=== PATIENT | female | born 1985 | race Caucasian/White ===

== ENCOUNTER 2017-08-12 14:07 | Emergency (ER) | payer OTHER ==
[~2017-08-12] VITALS: Ht 170.2 cm; Wt 90.7 kg
[~2017-08-12 14:07] MED LIST: ADVIL200 MG PO; AMITRIPTYLINE H25 MG PO; ATIVAN1 MG PO; ATIVAN2 MG PO; AUGMENTIN 875-1 EACH PO; EFFEXOR XR75 MG PO; FLUCELVAX IM; GABAPENTIN600 MG PO; KEFLEX500 MG PO; NABUMETONE500 MG PO; NORCO 5-325 TA1 EACH PO; OXYCODON-ACETA1 EAC2 PO; TRAMADOL HCL50 MG PO; VENTOLIN HFA18 GM INH; ZITHROMAX250 MG PO
[2017-08-12] MEDS ORDERED: LORAZEPAM1 MG PO (14:19)
[2017-08-12] MEDS ORDERED: LEVAQUIN750 MG PO (15:28)
== END 2017-08-12 15:41 | disposition home or self-care (01) ==
LOC: ED 14:07
DX: J32.9 Chronic sinusitis, unspecified (principal); Z88.8 Allergy status to other drugs, medicaments and biological substances; Z79.899 Other long term (current) drug therapy
CPT/HCPCS: 71046; 94640; 99283

== ENCOUNTER 2017-12-15 19:24 | Emergency (ER) | payer MEDICAID ==
[~2017-12-15] VITALS: Ht 170.2 cm; Wt 86.2 kg
[~2017-12-15 19:24] MED LIST changes: +LEVAQUIN750 MG PO; +LORAZEPAM1 MG PO
[2017-12-15] MEDS ORDERED: AZO STANDARD95 MG PO (19:51)
[2017-12-15] MEDS ORDERED: PYRIDIUM200 MG PO ×2 (20:43→20:45)
[2017-12-15] MEDS ORDERED: CEPHALEXIN500 MG PO (20:44)
== END 2017-12-15 21:24 | disposition home or self-care (01) ==
LOC: ED 19:24
DX: N39.0 Urinary tract infection, site not specified (principal); F17.200 Nicotine dependence, unspecified, uncomplicated
CPT/HCPCS: 81001; 96372; 99283; J0696

== ENCOUNTER 2024-08-06 01:12 | Emergency (ER) | payer OTHER ==
[~2024-08-06] VITALS: Ht 170.2 cm; Wt 90.7 kg
[~2024-08-06 01:12] MED LIST changes: +AZO STANDARD95 MG PO; +CEPHALEXIN500 MG PO; +METOPROLOL SUCC25 MG PO; +PYRIDIUM200 MG PO
[2024-08-06] MEDS ORDERED: SODIUM CHLORIDE 0.9% 1,000 ML IV ONE (01:30)
[2024-08-06] MEDS ORDERED: MORPHINE SULFATE 4 MG/ML VIAL IV ONE (01:30)
[2024-08-06] MEDS ORDERED: ondansetron HCL 4 MG/2 ML VIAL IV ONE (01:30)
[2024-08-06 01:36] LABS: BILIRUBIN, URINE NEGATIVE (negative); BLOOD/HGB, URINE TRACE-I (Negative); KETONE, URINE NEGATIVE (Negative); LEUK ESTERASE, URINE NEGATIVE (negative); NITRITE, URINE NEGATIVE (negative)
[2024-08-06 02:12] LABS: BASOPHILS 0.2 % (0-2); EOSINOPHILS 0.2 % (0-6); HEMATOCRIT 38.6 % (35.0-50.0); HEMOGLOBIN 13.5 g/dL (12.0-18.0); LYMPHOCYTES 5.2 % (24-44); MCH 32.1 (27-36); MCV 91.7 fl (81-99); MONOCYTES 4.6 % (0-12); NEUTROPHILS 89.8 % (39-80); PLATELET COUNT 167 K/uL (140-440); RBC 4.21 M/ul (4.3-5.7); RDW 12.8 (10.5-15.0)
[2024-08-06 02:17] LABS: BACTERIA, URINE RARE /hpf (negative); CASTS, URINE NONE SEEN \\lpf; COLLECTION TYPE, URINE CLEAN CATCH; CRYSTALS, URINE NONE SEEN (0-1+); EPITHELIAL CELLS, URINE SQUAMOUS 1+ /lpf (0-1+); RED BLOOD CELLS, URINE 0-1 /hpf (0-5); REFLEX CULTURE, URINE No (No)
[2024-08-06 02:29] LABS: ALBUMIN 3.4 g/dL (3.4-5.0); ALKALINE PHOSPHATASE 97 U/L (46-116); ALT (SGPT) 43 U/L (14-59); ANION GAP 11.2 (7-21); AST (SGOT) 17 U/L (15-37); BILIRUBIN, TOTAL 0.9 mg/dL (0.2-1.0); BUN/CREATININE RATIO 9.18 (6.0-28.6); CALCIUM 8.6 mg/dL (8.5-10.1); CARBON DIOXIDE 29 mmol/L (21-32); CHLORIDE 103 mmol/L (98-107); CREATININE, SERUM 0.98 mg/dL (0.55-1.02); GLOMERULAR FILTRATION RATE,EST 75 mL/min (>60); POTASSIUM 3.2 mmol/L (3.5-5.1); PROTEIN, TOTAL 6.8 g/dL (6.4-8.2); UREA NITROGEN 9 mg/dL (7-18)
[2024-08-06] MEDS ORDERED: KETOROLAC TROMETHAMINE 15 MG/ML VIAL IV ONE (02:30)
[2024-08-06] MEDS ORDERED: HYDROmorphone HCL 1 MG/ML SYR IV PRN (02:30)
[2024-08-06] MEDS ORDERED: VENTOLIN HFA18 GM INH (02:45)
[2024-08-06] MEDS ORDERED: CEFDINIR 300 MG HOME.PACK PO ONE (02:45)
[2024-08-06] MEDS ORDERED: AZITHROMYCIN500 MG PO (02:45)
[2024-08-06] MEDS ORDERED: CEFDINIR300 MG PO (02:45)
[2024-08-06] MEDS ORDERED: PREDNISONE20 MG PO (02:45)
[2024-08-06] MEDS ORDERED: HYDROCODON-ACE1 EA10 PO (02:45)
[2024-08-06] MEDS ORDERED: AZITHROMYCIN 250 MG TAB PO ONE (03:00)
[2024-08-06] MEDS ORDERED: HYDROCODONE BIT/ACETAMINOPHEN 5/325 MG 1 TAB HOME.PACK PO ONE (03:00)
[2024-08-06] MEDS ORDERED: predniSONE 20 MG TAB PO ONE (03:00)
[2024-08-06 03:47] VITALS: BP 108/61
== END 2024-08-06 03:38 | disposition home or self-care (01) ==
LOC: ED 01:12
PROVIDERS: Family Medicine
DX: J18.9 Pneumonia, unspecified organism (principal); F17.200 Nicotine dependence, unspecified, uncomplicated; Z88.8 Allergy status to other drugs, medicaments and biological substances; Z79.899 Other long term (current) drug therapy
CPT/HCPCS: 36415; 71045; 74176; 80053; 81001; 83690; 84484; 84703; 85025; 96374; 96375; 99284-25; A9270; J1171; J1885; J2270; J2405; J7030; J7512